=== PATIENT | male | born 2005 | race Two or more races ===

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

== ENCOUNTER 2023-01-11 09:45 | Day surgery (SDC) | payer OTHER ==
[2023-01-05 09:05] LABS: INR 1.09; PARTIAL THROMBOPLASTIN TIME 29.8 SECONDS (22.0-34.0); PROTHROMBIN TIME 11.4 SECONDS (9.0-11.5)
[2023-01-05 09:12] LABS: CALCIUM 9.8 mg/dL (8.5-10.1); CREATININE SERUM 0.92 mg/dL (0.70-1.30); GFR 105.98
[2023-01-05 09:17] LABS: HEMATOCRIT 43.8 % (39.0-48.0); HEMOGLOBIN 15.4 g/dL (13-16.00); MEAN CELL VOLUME 89.5 fL (80.0-100.00); MEAN CORPUSCULAR HEMOGLOBIN 31.3 pg (27.00-32.0); PLATELET COUNT 219 K/uL (150-450); RED CELL DISTRIBUTION WIDTH 13.3 % (11.5-14.5)
[2023-01-05 09:48] LABS: PH,URINE 5.5 (5.0-8.0); URINE APPEARANCE Clear; URINE BILIRRUBIN Negative (NEGATIVE); URINE BLOOD Moderate; URINE COLOR Yellow; URINE GLUCOSE Negative (NEGATIVE); URINE LEUKOCYTE Negative; URINE NITRATE Negative; URINE PROTEIN Trace (NEGATIVE); URINE UROBILINOGEN 0.2 E.U./dl
[2023-01-05 09:50] LABS: URINE BACTERIA 23.9 uL (0.0-1933); URINE EPITHELIAL CELLS 4.6 uL (0.0-38.8); URINE WBC 25.9 uL (0.0-23.2)
[~2023-01-11] VITALS: Ht 167.6 cm; Wt 56.7 kg
== END 2023-01-11 14:50 | disposition home or self-care (01) ==
LOC: CIR.AMB 09:45
PROVIDERS: ATTEND Urology
DX: N35.919 Unspecified urethral stricture, male, unspecified site (principal); R31.0 Gross hematuria; Z20.822 Contact with and (suspected) exposure to COVID-19